=== PATIENT | male | born 1950 | race African-American/Black ===

== ENCOUNTER 2024-03-25 06:24 | Inpatient (IN) | payer BC, MEDICARE ==
[~2024-03-25] VITALS: Ht 175.3 cm; Wt 74.9 kg
[2024-03-25 06:26] VITALS: O2SAT 100
[2024-03-25] MEDS: ACETAMINOPHEN WITH CODEINE 300/30MG TABLET PO ONE (07:24)
[2024-03-25 09:01] LABS: BASOPHILS % 0.4 % (0.0-2.0); EOSINOPHILS % 0.2 % (0.0-5.0); HEMATOCRIT. 38.9 % (42.0-52.0); HEMOGLOBIN. 12.7 g/dL (14.0-18.0); LYMPHOCYTES % 17.4 % (20.0-50.0); MEAN CORPUSCULAR HEMOGLOBIN 28.7 pg (28.0-32.0); MEAN CORPUSCULAR HGB CONC 32.5 g/dL (31.0-37.0); MEAN CORPUSCULAR VOLUME 88.3 fL (80.0-94.0); MONOCYTES % 7.1 % (2.0-8.0); NEUTROPHILS % 74.9 % (40.0-76.0); PLATELET 154 x1000/uL (130-400); RED CELL DISTRIBUTION WIDTH 13.7 % (11.6-14.6); WHITE BLOOD COUNT 6.9 x1000/uL (4.5-11.0)
[2024-03-25 09:11] LABS: POTASSIUM 3.9 mEq/L (3.5-5.1)
[2024-03-25 09:12] LABS: CALCIUM 8.8 mg/dL (8.7-10.4)
[2024-03-25 09:17] LABS: CREATININE 2.2 mg/dL (0.6-1.3)
[2024-03-25] MEDS: MORPHINE SULFATE 4 MG/ML INJ (FOR IV/IM USE) IV ONE (10:51)
[2024-03-25] MEDS ORDERED: COLCHICINE 0.6MG TABLET PO NR (14:30)
[2024-03-25] MEDS ORDERED: ONDANSETRON HCL 4MG/2ML INJ IV PRN (14:30)
[2024-03-25] MEDS ORDERED: ACETAMINOPHEN 325MG TABLET PO PRN (14:30)
[2024-03-25] MEDS ORDERED: CLONIDINE 0.1MG TABLET PO PRN (14:30)
[2024-03-25] MEDS ORDERED: NALOXONE HCL 0.4MG/ML VIAL IV PRN (14:45)
[2024-03-25] MEDS ORDERED: HYDROCODONE/ACETAMINOPHEN 10/325MG TABLET PO PRN (14:45)
[2024-03-25] MEDS: PREDNISONE 20MG TABLET PO SCH (14:55)
[2024-03-25] MEDS: SODIUM CHLORIDE 0.9% 1,000 ML IV SCH (14:55)
[2024-03-25] MEDS: COLCHICINE 0.6MG TABLET PO NR (15:16)
[2024-03-25] MEDS: ENOXAPARIN 30MG/0.3ML SYR SUBCUT SCH (15:16)
[2024-03-25] MEDS ORDERED: DEXTROSE 50% WATER 50ML SYRINGE IV PRN (15:45)
[2024-03-25] MEDS: BLOOD SUGAR DIAGNOSTIC STRIP TEST SCH (16:53)
[2024-03-25] MEDS: INSULIN LISPRO 100 UNITS/ML SUBCUT SCH (17:20)
[2024-03-25 20:00] VITALS: BP 153/74; PULSE 62; RESP 18; TEMP 97.9
[2024-03-25 20:30] VITALS: BP 130/60; PULSE 60; RESP 18; TEMP 97.8
[2024-03-26] VITALS: BP 114/59; PULSE 60; RESP 19; TEMP 97.6
[2024-03-26 04:00] VITALS: BP 125/71; PULSE 60; RESP 20; TEMP 98.8
[2024-03-26 05:30] LABS: POTASSIUM 4.7 mEq/L (3.5-5.1)
[2024-03-26 05:31] LABS: CALCIUM 9.5 mg/dL (8.7-10.4)
[2024-03-26 06:29] LABS: BASOPHILS % 0.2 % (0.0-2.0); HEMATOCRIT. 39.4 % (42.0-52.0); HEMOGLOBIN. 12.9 g/dL (14.0-18.0); LYMPHOCYTES % 15.4 % (20.0-50.0); MEAN CORPUSCULAR HEMOGLOBIN 28.6 pg (28.0-32.0); MEAN CORPUSCULAR HGB CONC 32.7 g/dL (31.0-37.0); MEAN CORPUSCULAR VOLUME 87.3 fL (80.0-94.0); MEAN PLATELET VOLUME 10.4 fl (7.4-10.4); MONOCYTES % 3.8 % (2.0-8.0); NEUTROPHILS % 80.6 % (40.0-76.0); PLATELET 154 x1000/uL (130-400); RED BLOOD CELL COUNT 4.52 mill/uL (4.7-6.1); RED CELL DISTRIBUTION WIDTH 13.6 % (11.6-14.6); WHITE BLOOD COUNT 6.3 x1000/uL (4.5-11.0)
[2024-03-26 08:00] VITALS: BP 122/70; PULSE 60; RESP 20; TEMP 98
[2024-03-26] MEDS: COLCHICINE 0.6MG TABLET PO SCH (08:30)
[2024-03-26 12:00] VITALS: BP 122/70; PULSE 60; RESP 20; TEMP 98
[2024-03-26 12:32] LABS: CREATINE KINASE 42 IU/L (46-171)
[2024-03-26] MEDS ORDERED: HYDR-4001 MT (15:40)
[2024-03-26] MEDS ORDERED: P20 PO (15:40)
[2024-03-26] MEDS ORDERED: COLC0.6T66 MT ×2 (15:41→18:35)
[2024-03-26 16:00] VITALS: BP 122/70; PULSE 60; RESP 20; TEMP 98.1
[2024-03-26] MEDS ORDERED: PRED10TA MT (18:35)
[2024-03-26 20:00] VITALS: BP 151/70; PULSE 60; RESP 19; TEMP 97.5
[2024-03-27] VITALS: BP 136/70; PULSE 60; RESP 18; TEMP 96.6
[2024-03-27 04:00] VITALS: BP 137/71; PULSE 60; RESP 18; TEMP 98.4
[2024-03-27 08:00] VITALS: BP 126/72; PULSE 60; RESP 18; TEMP 96.9
[2024-03-27 12:00] VITALS: BP 149/68; PULSE 60; RESP 19; TEMP 96.4
[2024-03-27 12:48] LABS: POTASSIUM 4.7 mEq/L (3.5-5.1)
[2024-03-27 12:49] LABS: CALCIUM 8.9 mg/dL (8.7-10.4)
[2024-03-27 12:54] LABS: BASOPHILS % 0.3 % (0.0-2.0); CREATININE 1.8 mg/dL (0.6-1.3); EOSINOPHILS % 0.1 % (0.0-5.0); HEMATOCRIT. 41.9 % (42.0-52.0); HEMOGLOBIN. 13.3 g/dL (14.0-18.0); LYMPHOCYTES % 11.7 % (20.0-50.0); MEAN CORPUSCULAR HEMOGLOBIN 28.4 pg (28.0-32.0); MEAN CORPUSCULAR HGB CONC 31.7 g/dL (31.0-37.0); MEAN CORPUSCULAR VOLUME 89.5 fL (80.0-94.0); MONOCYTES % 4.7 % (2.0-8.0); NEUTROPHILS % 83.2 % (40.0-76.0); RED BLOOD CELL COUNT 4.68 mill/uL (4.7-6.1); RED CELL DISTRIBUTION WIDTH 13.9 % (11.6-14.6); WHITE BLOOD COUNT 10.2 x1000/uL (4.5-11.0)
[2024-03-27 13:10] LABS: DIFFERENTIAL COMMENT 1
[2024-03-27 14:55] VITALS: BP 149/68; PULSE 60; TEMP 96.4
== END 2024-03-27 16:42 | disposition home or self-care (01) | DRG 554 ==
LOC: ER 06:24 → 5WST 10:48 → EDBEDREQTM 10:54 → EDBEDREQ 10:54 → 6EST 20:24
PROVIDERS: ADMIT Internal Medicine; ATTEND Internal Medicine
DX: M10.071 Idiopathic gout, right ankle and foot (principal); N17.9 Acute kidney failure, unspecified; E11.22 Type 2 diabetes mellitus with diabetic chronic kidney disease; H54.8 Legal blindness, as defined in USA; I12.9 Hypertensive chronic kidney disease with stage 1 through stage 4 chronic kidney disease, or unspecified chronic kidney disease; N18.9 Chronic kidney disease, unspecified; Z79.899 Other long term (current) drug therapy
CPT/HCPCS: 36415; 73630; 76770; 80048; 80061; 82550; 82962; 83036; 84550; 85025; 85651; 93970; 97162; 99285; J1650; J1815; J2270; J7030; J7512